=== PATIENT | female | born 1995 | race Hispanic/Latino ===

== ENCOUNTER 2019-04-25 14:21 | Observation (INO) | payer OTHER ==
[~2019-04-25] VITALS: Ht 157.5 cm; Wt 79.4 kg
[2019-04-25 15:03] LABS: APPEARANCE,URINE Cloudy (CLEAR); BILIRUBIN,URINE Negative (NEGATIVE); COLOR,URINE Yellow (YELLOW); GLUCOSE, URINE (UA) Negative (NEGATIVE); KETONES,URINE Negative (NEGATIVE); LEUKOCYTE ESTERASE ,URINE Moderate (NEGATIVE); NITRATE,URINE Negative (NEGATIVE); OCCULT BLOOD,URINE Negative (NEGATIVE); PH,URINE 6.5 (5.0-8.0); PROTEIN,URINE Negative (NEGATIVE)
[2019-04-25] MEDS: LACTATED RINGERS 1000ML 1,000 ML IV SCH ×3 (15:10→23:12)
[2019-04-25 15:15] LABS: BACTERIA,URINE Few /HPF (None Seen); RBC,URINE 0-1 /HPF (0-1); SQUAMOUS EPITHELIAL CELL,UR Few /HPF (0-2)
[2019-04-25] MEDS ORDERED: CEFTRIAXONE SODIUM 1 GM IVP SCH (16:15)
[2019-04-25] MEDS ORDERED: TERBUTALINE SULFATE VIAL 1MG/ML SQ ONE (16:34)
[2019-04-25] MEDS: TERBUTALINE SULFATE VIAL 1MG/ML SQ PRN ×2 (16:36→18:12)
[2019-04-25] MEDS: CELESTONE SOLUSPAN 6 MG/ML 5ML VIAL IM SCH (17:10)
[2019-04-25 19:37] LABS: AMPHET/METH SCREEN,URINE NEGATIVE (NEGATIVE); BARBITURATE SCREEN, URINE NEGATIVE (NEGATIVE); BENZODIAZEPINES SCREEN,URINE NEGATIVE (NEGATIVE); CANNABINOID SCREEN,URINE NEGATIVE (NEGATIVE); COCAINE SCREEN,URINE NEGATIVE (NEGATIVE); OPIATE SCREEN,URINE NEGATIVE (NEGATIVE); PHENCYCLIDINE SCREEN,URINE NEGATIVE (NEGATIVE)
[2019-04-26] MEDS: LACTATED RINGERS 1000ML 1,000 ML IV SCH (06:26)
[2019-04-26] MEDS: CELESTONE SOLUSPAN 6 MG/ML 5ML VIAL IM SCH (11:00)
== END 2019-04-26 12:17 | disposition home or self-care (01) ==
LOC: EDH 14:21 → LDH 14:50
PROVIDERS: ADMIT Obstetrics & Gynecology; ATTEND Obstetrics & Gynecology
DX: O26.893 Other specified pregnancy related conditions, third trimester (principal); M54.9 Dorsalgia, unspecified; R05 Cough; R50.9 Fever, unspecified; R10.2 Pelvic and perineal pain; Z3A.35 35 weeks gestation of pregnancy; Z79.899 Other long term (current) drug therapy
CPT/HCPCS: 80305; 81001; 96372 ×3; 96374; 99284; G0378 ×20; J0696; J0702; J3105; J7120 ×5; 96360; 96361

== ENCOUNTER 2019-05-01 12:20 | Observation (INO) | payer OTHER ==
[~2019-05-01] VITALS: Ht 157.5 cm; Wt 80.3 kg
[2019-05-01 12:58] LABS: APPEARANCE,URINE Cloudy (CLEAR); BILIRUBIN,URINE Negative (NEGATIVE); COLOR,URINE Yellow (YELLOW); GLUCOSE, URINE (UA) Negative (NEGATIVE); KETONES,URINE Negative (NEGATIVE); LEUKOCYTE ESTERASE ,URINE Large (NEGATIVE); NITRATE,URINE Negative (NEGATIVE); OCCULT BLOOD,URINE Negative (NEGATIVE); PROTEIN,URINE Trace mg/dL (NEGATIVE)
[2019-05-01 13:14] LABS: BACTERIA,URINE Moderate /HPF (None Seen); RBC,URINE 0-1 /HPF (0-1); SQUAMOUS EPITHELIAL CELL,UR 30-50 /HPF (0-2)
[2019-05-01] MEDS ORDERED: CEFTRIAXONE SODIUM 1 GM IVP SCH (14:00)
[2019-05-01] MEDS ORDERED: LACTATED RINGERS 1000ML IV SCH (14:00)
== END 2019-05-01 15:25 | disposition home or self-care (01) ==
LOC: EDH 12:20 → LDH 12:21
PROVIDERS: ADMIT Obstetrics & Gynecology; ATTEND Obstetrics & Gynecology
DX: O26.893 Other specified pregnancy related conditions, third trimester (principal); R10.2 Pelvic and perineal pain; Z3A.36 36 weeks gestation of pregnancy
CPT/HCPCS: 81001; 96374; 99284; G0378 ×3; J0696; J7120 ×2; 96360

== ENCOUNTER 2022-06-13 10:52 | Emergency (ER) | payer BC, OTHER ==
[~2022-06-13] VITALS: Ht 157.5 cm; Wt 72.6 kg
[2022-06-13] MEDS ORDERED: IBUPROFEN 600 MG TABLET PO ONE (11:30)
[2022-06-13] MEDS ORDERED: GUAIFENESIN-DM 200/20 MG 10 ML PO ONE (11:30)
[2022-06-13] MEDS ORDERED: OSELTAMIVIR PHOSPHATE 75 MG CAP PO SCH (11:30)
[2022-06-13] MEDS ORDERED: D-ME118S47 PO (11:31)
[2022-06-13] MEDS ORDERED: ACET-66 PO (11:31)
[2022-06-13] MEDS ORDERED: OSEL75 PO (11:31)
[2022-06-13 11:45] VITALS: BP 132/74
== END 2022-06-13 11:46 | disposition home or self-care (01) ==
LOC: EDH 10:52
DX: J10.1 Influenza due to other identified influenza virus with other respiratory manifestations (principal); Z20.822 Contact with and (suspected) exposure to COVID-19
CPT/HCPCS: 87426; 87804; 87880